=== PATIENT | female | born 1990 | race Caucasian/White ===

== ENCOUNTER 2021-01-31 15:06 | Emergency (ER) | payer OTHER ==
[~2021-01-31] VITALS: Ht 162.6 cm; Wt 134.1 kg
[~2021-01-31 15:06] MED LIST: ACET325T9 PO
--- NOTE | 2021-01-31 15:58 | PHYS DOC ---
Past Medical History Past Medical History: No Pertinent History Past Surgical History: Tonsillectomy, Other Additional Past Surgical Histo: wisdom teeth, D&C Smoking Status: Never Smoker Alcohol Use: None Drug Use: None General Adult EDM: Chief Complaint: LOWER EXTREMITY SWELLING HPI: HPI: Patient is a 31 year old female who presents with greater than 2-year history of right ankle pain. She reports that she was told she might have fractured it after a fall over 2 years ago. She was seen several times in the ER at [facility], reportedly, for this issue. She has not followed up with a primary care physician ever for this issue. She reports no changes today. She usually takes ibuprofen or Tylenol for pain, however she has not taken anything at all today for this. She denies any new injury or trauma. She has chronic lateral ankle swelling, which is unchanged today. No fevers or chills. No open wounds or redness. No numbness tingling or motor weakness. She denies calf pain. He reports that she purposely kept her self in a boot for over a year and a half after the injury. She is not currently using a boot or any sort of orthotic device Review of Systems: Review of Systems: Constitutional: Denies fever or chills. [] Respiratory: Denies cough or shortness of breath. [] Cardiovascular: Denies chest pain or edema. [] Musculoskeletal: Chronic right ankle pain and lateral ankle swelling. No joint redness. Integument: Denies rash. [] Neurologic: Denies headache, focal weakness or sensory changes. [] Psychiatric: Denies depression or anxiety. [] Heart Score: C/O Chest Pain: No Risk Factors: Risk Factors: DM, Current or recent (<one month) smoker, HTN, HLP, family history of CAD, obesity. Risk Scores: Score 0 - 3: 2.5% MACE over next 6 weeks - Discharge Home Score 4 - 6: 20.3% MACE over next 6 weeks - Admit for Clinical Observation Score 7 - 10: 72.7% MACE over next 6 weeks - Early Invasive Strategies Allergies: Allergies: Allergies Uncoded Allergies Type Severity Reaction Last Updated Verified MUSHROOMS Allergy Severe FACE,HANDS,MOUTH SWELLED UP 01/31/21 Physical Exam: PE: Constitutional: Well developed, well nourished, no acute distress, non-toxic appearance. [] HENT: Normocephalic, atraumatic Cardiovascular: +2 DP and PT pulse of the FLE Lungs & Thorax: Respirations are non-labored Skin: Warm, dry, no erythema, no rash. No open wounds or rash or erythema of the RLE. Extremities: No deformity. Mild soft tissue swelling of the right lateral ankle. No ligamentous laxity. No step off or crepitus. No warmth or erythema. Diffuse lateral and medial ankle tenderness. No Achilles tenderness or step off. Full ROM with dorsiflexion and plantarflexion of the R foot/ankle. No calf tenderness. No edema. Compartments are soft. No pain or tenderness out of proportion to exam findings. Neurologic: Alert and oriented X 3, normal motor function, normal sensory function, no focal deficits noted. [] Psychologic: Anxious. Cooperative. [] EKG: EKG: [] Radiology/Procedures: Radiology/Procedures: IMAGING REPORT Signed PATIENT: MITZI MARINA ACCOUNT: [id number] : 1990 LOCATION: ER AGE: 31 SEX: F EXAM STATUS: PRE ER ORD. PHYSICIAN: EPI PEARSON DO REASON: pain PROCEDURE: ANKLE RIGHT 3V EXAMINATION: XR EXAM OF ANKLE_RIGHT 3VIEWS CLINICAL HISTORY: Right ankle pain TECHNIQUE: XR EXAM OF ANKLE_RIGHT 3VIEWS Number of Images/Views: 3 COMPARISON: None FINDINGS: Joint spaces and alignment maintained. No acute fracture. Small lucency suggested in the medial talar dome on oblique view only, cannot exclude a small osteochondral lesion. Mild soft tissue swelling. IMPRESSION: No acute osseous abnormality. Questionable small osteochondral lesion in the medial talar dome visualized on single image only, correlate clinically. Electronically signed by: Apollo Lopez DO (01/31/2021 4:55 PM) [facility] DICTATED and SIGNED BY: APOLLO LOPEZ DO DATE: 01/31/21 [id number] 0 Course & Med Decision Making: Course & Med Decision Making Pertinent Labs and Imaging studies reviewed. (See chart for details) X-ray reveals no acute process. Ice pack and p.o. Gilbert given. I ordered an Soy wrap for comfort. I discussed the findings, differential diagnosis and plan of care with the patient. I explained that she needs to follow-up with a primary care physician. I suspect that if she really kept herself in a boot for over a year and a half, this may be at least partially contributing to her joint stiffness and pain. No current indication for further imaging, invasive exams admission or transfer at this time. There is no evidence of septic joint, no warmth erythema. No pain out of proportion to exam. She is given outpatient resources to establish primary care physician. I explained that physical therapy services may be of benefit to her. Return precautions are given. Dragon Disclaimer: Dragon Disclaimer: This electronic medical record was generated, in whole or in part, using a voice recognition dictation system. Departure Departure Impression: Primary Impression: Chronic pain of right ankle Referrals: NO PCP (PCP) Patient Instructions: Ankle Pain, Chronic Pain Additional Instructions: Ice and elevate your ankle to help with pain. Use the Soy wrap for compression to help with pain. Use the pain medicine as needed. You may continue taking plain [id number] Tylenol or ibuprofen as well. Do not take extra Tylenol- containing products with the prescription medication you are given here today. You will need to see a primary care physician for follow-up. You may need some maintenance medication for chronic pain, please discuss this with your primary care physician. Return to the ER for any acute injury or trauma, if you develop any severe joint redness, or severe swelling, new injury or trauma, temperature 100.4 or higher or for any other concerns. Scripts Hydrocodone Bit/Acetaminophen (HYDROCODONE-APAP 5-325 ) 1 Tab Tablet 1 TAB PO PRN Q6HRS PRN for PAIN, #10 TAB 0 Refills Prov: EPI PEARSON DO 01/31/21 EPI PEARSON DO Jan 31, 2021 15:58
[2021-01-31] MEDS ORDERED: HYDROcodone/APAP 5/325MG 1 TAB TABLET PO ONE (16:15)
--- NOTE | 2021-01-31 16:57 | RAD ---
EXAMINATION: XR EXAM OF ANKLE_RIGHT 3VIEWS CLINICAL HISTORY: Right ankle pain TECHNIQUE: XR EXAM OF ANKLE_RIGHT 3VIEWS Number of Images/Views: 3 COMPARISON: None FINDINGS: Joint spaces and alignment maintained. No acute fracture. Small lucency suggested in the medial talar dome on oblique view only, cannot exclude a small osteochondral lesion. Mild soft tissue swelling. IMPRESSION: No acute osseous abnormality. Questionable small osteochondral lesion in the medial talar dome visualized on single image only, cor relate clinically. Electronically signed by: Apollo Rodriguez DO (01/31/2021 4:55 PM) [facility]
[2021-01-31] MEDS ORDERED: HYDR-2761 PO (16:59)
[2021-01-31 17:22] VITALS: BP 114/57
== END 2021-01-31 17:30 | disposition home or self-care (01) ==
LOC: ER 15:06
DX: G89.29 Other chronic pain (principal); M25.571 Pain in right ankle and joints of right foot
CPT/HCPCS: 73610; 99283